=== PATIENT | male | born 1975 | race Two or more races ===

== ENCOUNTER 2016-11-29 17:02 | Observation (INO) | payer OTHER ==
[2016-11-30] MEDS ORDERED: ACETAMINOPHEN 325 MG TAB PO PRN (10:15)
[2016-11-30] MEDS ORDERED: diphenhydrAMINE 25 MG CAP PO ONE (10:15)
[2016-11-30] MEDS ORDERED: ASPIRIN EC 325 MG TAB PO ONE (10:15)
[2016-11-30] MEDS ORDERED: DIAZEPAM 5 MG TAB PO ONE (10:15)
[2016-11-30] MEDS ORDERED: NITROGLYCERIN 0.4 MG BTL SL PRN (10:15)
[2016-11-30] MEDS ORDERED: TEMAZEPAM 15 MG CAP PO PRN ×2 (10:15→13:09)
[2016-11-30 10:42] LABS: % IMMATURE GRANULYOCYTES 0.2 % (0.0-1.1); ABSOLUTE IMMATURE GRANULOCYTES 0.01 10^3/uL (0.00-0.10); ADD DIFF? NO; ADD MORPH? NO; ADD SCAN? NO; ATYPICAL LYMPHOCYTE FLAG 10 (0-99); FRAGMENT RBC FLAG 0 (0-99); HEMATOCRIT 42.1 % (40.0-51.0); LEFT SHIFT FLG 0 (0-99); LIPEMIA HEMOLYSIS FLAG 90 (0-99); MEAN CELL HEMOGLOBIN 32.9 pg (27.9-34.1); MEAN CELL HEMOGLOBIN CONCENTR. 35.6 g/dL (32.4-36.7); MEAN CELL VOLUME 92.3 fL (81.5-99.8); MEAN PLATELET VOLUME 10.4 fL (8.7-11.7); PLATELET CLUMPS FLAG 0 (0-99); PLATELET COUNT 171 10^3/uL (150-400); RED BLOOD CELL COUNT 4.56 10^6/uL (4.40-6.38); RED CELL DISTRIBUTION WIDTH 12.1 % (11.5-15.2)
[2016-11-30] MEDS ORDERED: LIDOCAINE 1% 30 ML SDV ONE (11:02)
[2016-11-30] MEDS ORDERED: fentaNYL 100 MCG/2 ML INJ ONE (11:02)
[2016-11-30] MEDS ORDERED: MIDAZOLAM 2 MG/2 ML VIAL ONE (11:02)
[2016-11-30] MEDS ORDERED: VERAPAMIL 5 MG/2 ML VIAL ONE ×2 (11:03→12:14)
[2016-11-30] MEDS ORDERED: IOPAMIDOL (ISOVUE-370) 150 ML BTL IV ONE ×2 (11:03→12:09)
[2016-11-30] MEDS ORDERED: HEPARIN 10,000 UNIT/10 ML MDV ONE ×2 (11:03→12:27)
[2016-11-30 11:18] LABS: INR 1.04 (0.83-1.16); PROTIME(PATIENT) 13.5 SEC (12.0-15.0)
[2016-11-30 11:19] LABS: APTT 28.1 SEC (23.0-38.0)
[2016-11-30 11:30] LABS: ANION GAP 11 mEq/L (8-16); CARBON DIOXIDE 23 mEq/l (22-31); CHLORIDE 108 mEq/L (97-110); CHOLESTEROL 212 mg/dL (140-200); CHOLESTEROL/HDL RATIO 6.42 RATIO (1.00-4.97); CREATININE 0.8 mg/dL (0.7-1.3); GLOMERULAR FILTRATION RATE > 60; GLUCOSE 92 mg/dL (70-100); HIGH DENSITY LIPOPROTEIN 33 mg/dL (40-65); LDL/HDL RATIO 3.73 RATIO (1.00-3.64); LOW DENSITY LIPOPROTEIN 123 mg/dL (70-100); MAGNESIUM 1.8 mg/dL (1.6-2.3); NON-HIGH DENSITY LIPOPROTEIN 179 mg/dL (90-129); POTASSIUM 4.4 mEq/L (3.5-5.2); SODIUM 142 mEq/L (134-144); TRIGLYCERIDE 282 mg/dL (40-150); VERY LOW DENSITY LIPOPROTEINS 56 mg/dL (8-25)
[2016-11-30] MEDS ORDERED: EPTIFIBATIDE 200 MG/100 ML BOTTLE IV ONE (12:03)
[2016-11-30] MEDS ORDERED: EPTIFIBATIDE 20 MG/10 ML VIAL IVP ONE (12:04)
[2016-11-30] MEDS ORDERED: NITROGLYCERIN 1,500 MCG/15 ML VIAL MISC ONE (12:17)
[2016-11-30] MEDS ORDERED: PRASUGREL HCL 10 MG TAB ONE (12:46)
[2016-11-30] MEDS ORDERED: PRASUGREL HCL 10 MG TAB PO ONE (13:09)
[2016-11-30] MEDS ORDERED: ATROPINE SULFATE 1 MG/10 ML SYR IVP PRN (13:09)
[2016-11-30] MEDS ORDERED: HYDROCODONE/APAP 5/325 TAB PO PRN (13:09)
[2016-11-30] MEDS ORDERED: LORazepam 2 MG/ML INJ IVP PRN (13:09)
[2016-11-30] MEDS ORDERED: OXYCODONE/APAP 5/325 TAB PO PRN (13:09)
--- NOTE | 2016-11-30 13:41 | CPEKG ---
Heart Rate: 49 RR Interval: 1224 P-R Interval: 192 QRSD Interval: 92 QT Interval: 448 QTC Interval: 405 P [place]: 61 QRS [place]: 94 T Wave [place]: 78 EKG Severity - ABNORMAL ECG - EKG Impression: SINUS BRADYCARDIA EKG Impression: PROBABLE ANTEROSEPTAL INFARCT, AGE INDETERM Electronically Signed By: Krupa Machado 01-Dec-2016 16:45:59
[2016-11-30 14:40] LABS: CREATINE KINASE-MB FRACTION 0.95 ng/mL (0-3.19); TROPONIN I < 0.012 ng/mL (0-0.034)
--- NOTE | 2016-11-30 14:45 | CPIP ---
[f rep st] INVASIVE CARDIAC PROCEDURE DATE OF PROCEDURE: 11/30/2016 INDICATION: A 41-year-old man with no previous cardiac history, with a number of weeks of progressiv e anginal chest pain leading to markedly positive exercise stress test yesterday with multiple high-r isk features. Patient's symptoms are [place] Cardiovascular class III and severe lifestyle limiting . PROCEDURE PERFORMED: 1. Left heart catheterization with left ventricular and selective coronary angiography via right rad ial approach. 2. Percutaneous intervention with balloon angioplasty, intravascular ultrasound imaging, intracorona ry stent placement in the totally occluded proximal and mid left anterior descending coronary artery. 3. Kissing balloon angioplasty of left anterior descending and principal diagonal branch via stent s truts. DESCRIPTION: Risks, benefits, and alternatives were discussed in detail. Informed consent was obtai nata. Edin test was normal. Patient was brought to the catheterization laboratory where time-out wa s performed. Right wrist was sterilely prepped and draped. 2% lidocaine utilized for local anesthet ic. A 6-Slovenian slender sheath placed in the right radial artery utilizing micropuncture technique. Intra-arterial verapamil and intravenous heparin were administered. All catheters were exchanged ove r an exchange length J wire. Diagnostic angiography performed with 6-Slovenian Raghu right 4 and Judk ins left 3.5 catheters. Pigtail catheter used for left heart catheterization and left ventricular an giogram. The obvious culprit lesion was the total occlusion of the LAD, which had some features of chronic tot al occlusion with pvcbq-ap-fcjg collaterals and some appearance of thrombus, consistent with sub-therapist's assistant val total occlusion. There was calcification. Plans were made for percutaneous intervention. Initi ally, an EBU 3.5 guide catheter was placed but was not a good fit and was exchanged for a left radial backup, 3.5 6-Slovenian guide catheter, which was a good fit. Further heparin was administered. After we crossed the lesion, double bolus Integrilin was started. A long Supervisor Dumping 50 wire was placed through a 2.0 x 12 mm Krxv-Bun-Tvqx Emerge balloon, and with some difficulty, the total occlusion was crosse d, and the wire was placed out distally, allowing passage of the balloon. Blood was aspirated from t he balloon, and injection of dilute contrast demonstrated intraluminal placement. A long [place] wire was then placed through the balloon, and the balloon was used for multiple pre-dilations up to 1 4 atmospheres in the proximal and mid vessel, restoring some antegrade flow. Intracoronary nitroglyc angelica and verapamil were administered. Intravascular ultrasound imaging was performed. Lesion length and vessel diameter were then measured. A 3.5 x 38 mm Synergy stent was then carefully positioned i n the proximal and mid left anterior descending and deployed to 16 atmospheres. Further nitroglyceri n and verapamil were administered. The original Supervisor Dumping 50 wire through the 2 mm x 12 mm Qceh-Jde-Hfgw balloon was then placed through the stent struts into the principal diagonal branch, which was in "s tent prison." This balloon was utilized to dilate the stent struts for a number of inflations up to 16 atmospheres. Through the balloon, the wire was exchanged for a long Intuition wire, and this balloo n was removed. Then a 2.5 x 12 mm Monorail Emerge balloon was placed in the diagonal branch, and a 4 .5 mm x 15 mm NC Emerge balloon was placed in the LAD. Multiple proximal LAD inflations were perform ed up to 16 atmospheres with the NC balloon, and kissing balloon inflations in the mid LAD and diagon al branch. The balloons were removed. Further nitroglycerin and verapamil were administered, follow ed by ultrasound imaging throughout the length of the LAD, showing excellent result. Angiography in orthogonal views also demonstrated excellent result after removal of the guidewires. TR Band was the n placed after removal of the sheath. Patient received Effient 60 mg in the chemical laboratory tester, and Integrilin drip continued. FINDINGS: Hemodynamics: LVEDP was 21 mmHg. There was no systemic hypertension. For details, see t he chemical laboratory tester flow sheet. Left ventricle: Left ventricle is normal in size and shape. There is very mild anterior wall hypoki nesis with overall normal ejection fraction of approximately 60%. There are no filling defects or si gnificant mitral regurgitation. The proximal aortic root and ascending aorta appear unremarkable. M ild coronary calcification is identified. Coronary angiography: 1. Right coronary: The right coronary is a large dominant vessel with a large posterior descending and a moderate posterolateral branch. The right coronary and its branches are free of disease. Ther e are fair volqb-he-gaat collaterals identified filling the LAD from the principal diagonal to the ap ex. 2. Left main: The left main is a moderately large bifurcating vessel with minimal plaquing seen on ultrasound imaging. 3. Left anterior descending: This is a large vessel, which is totally occluded proximally at the or igin of the 1st septal manufacturing supervisor 2nd shift and just proximal to the origin of the principal diagonal branch. There is mainly filling from kscjl-pw-meid and some kihn-xg-ikvi filling of a diagonal branch. There is the appearance of some staining, consistent with thrombus. Otherwise, there is minimal disease. 4. Circumflex: The circumflex is nondominant, giving rise to a large multi-branching 1st obtuse mar ginal branch and a small distal AV groove circulation. PERCUTANEOUS INTERVENTION: Following percutaneous intervention on the total occlusion, there is an e xcellent result with restored normal antegrade flow. The principal diagonal branch was placed in "st ent prison" with some encroachment which improved substantially following balloon angioplasty and kissi ng balloon angioplasty. Following large balloon angioplasty in the LAD, there is an excellent result confirmed by ultrasound imaging. There is CARLEE grade 3 antegrade flow in all vessels and no signifi cant residual stenosis, no side branch obstruction, and no stent underdeployment. OVERALL IMPRESSION: 1. Mild anterior wall hypokinesis with normal ejection fraction. 2. Single-vessel coronary disease with total occlusion of proximal left anterior descending with rig ht-to-left and eygb-ru-peqw collaterals, successfully treated as described above with single long geovanny g-eluting stent and kissing balloon angioplasty into the diagonal branch, with excellent result confi rmed by ultrasound imaging. PLAN: 1. Dual antiplatelet therapy. 2. Continue Integrilin for 18 hours. 3. High-dose statin therapy. 4. Low-dose beta jaziel due to LV dysfunction. 5. Follow ventricular function with echocardiography. 6. Assess lipoprotein(a) and other potential risk factors for early-onset coronary disease. /[id number]/MODL
[2016-11-30] MEDS: D5W 1/2 NS 1,000 ML IV SCH ×2 (15:05→22:21)
[2016-11-30] MEDS: ATORVASTATIN CALCIUM 40 MG TAB PO SCH (15:17)
[2016-11-30] MEDS: ONDANSETRON 4 MG/2 ML VIAL IVP PRN (16:25)
[2016-11-30] MEDS: EPTIFIBATIDE 100 ML IV SCH (17:21)
[2016-12-01] MEDS: EPTIFIBATIDE 100 ML IV SCH (01:15)
[2016-12-01 05:34] LABS: % IMMATURE GRANULYOCYTES 0.2 % (0.0-1.1); ABSOLUTE IMMATURE GRANULOCYTES 0.02 10^3/uL (0.00-0.10); ADD DIFF? NO; ADD MORPH? NO; ADD SCAN? NO; ATYPICAL LYMPHOCYTE FLAG 10 (0-99); FRAGMENT RBC FLAG 0 (0-99); HEMATOCRIT 37.2 % (40.0-51.0); HEMOGLOBIN 12.9 g/dL (13.7-17.5); LEFT SHIFT FLG 0 (0-99); LIPEMIA HEMOLYSIS FLAG 90 (0-99); MEAN CELL HEMOGLOBIN 32.6 pg (27.9-34.1); MEAN CELL HEMOGLOBIN CONCENTR. 34.7 g/dL (32.4-36.7); MEAN CELL VOLUME 93.9 fL (81.5-99.8); MEAN PLATELET VOLUME 11.1 fL (8.7-11.7); PLATELET CLUMPS FLAG 0 (0-99); PLATELET COUNT 152 10^3/uL (150-400); RED BLOOD CELL COUNT 3.96 10^6/uL (4.40-6.38); RED CELL DISTRIBUTION WIDTH 12.2 % (11.5-15.2)
[2016-12-01 05:56] LABS: ALBUMIN 3.4 g/dL (3.5-5.0); ANION GAP 9 mEq/L (8-16); ASPARTATE AMINOTRANSFERASE 28 IU/L (17-59); BILIRUBIN,TOTAL 0.5 mg/dL (0.1-1.4); CALCIUM 8.9 mg/dL (8.5-10.4); CARBON DIOXIDE 25 mEq/l (22-31); CHLORIDE 107 mEq/L (97-110); CREATININE 0.9 mg/dL (0.7-1.3); GLOMERULAR FILTRATION RATE > 60; GLUCOSE 107 mg/dL (70-100); LACTATE DEHYDROGENASE 447 IU/L (313-618); MAGNESIUM 1.8 mg/dL (1.6-2.3); POTASSIUM 4.4 mEq/L (3.5-5.2); SODIUM 141 mEq/L (134-144)
[2016-12-01 05:59] LABS: HIGHLY SENSITIVE CRP 2.1 mg/L
[2016-12-01 06:07] LABS: TROPONIN I 0.475 ng/mL (0-0.034)
[2016-12-01 06:14] LABS: CREATINE KINASE-MB FRACTION 5.27 ng/mL (0-3.19)
[2016-12-01 06:16] LABS: CK-MB INTERPRETATION POSITIVE (NEGATIVE)
[2016-12-01 07:13] VITALS: BP 111/72; PULSE 84; RESP 13; TEMP 98.4; O2SAT 96
[2016-12-01] MEDS: ONDANSETRON 4 MG/2 ML VIAL IVP PRN (08:43)
[2016-12-01] MEDS ORDERED: ASPIRIN EC 325 MG TAB PO SCH (09:00)
[2016-12-01] MEDS ORDERED: SERTRALINE HCL 50 MG TAB PO SCH (09:00)
[2016-12-01] MEDS ORDERED: PRASUGREL HCL 10 MG TAB PO SCH (09:00)
[2016-12-01] MEDS ORDERED: METOPROLOL SUCCINATE XR 25 MG TAB PO SCH (09:00)
[2016-12-01] MEDS: ATORVASTATIN CALCIUM 40 MG TAB PO SCH (09:47)
--- NOTE | 2016-12-01 14:07 | GDS ---
[f rep st] DISCHARGE SUMMARY DIAGNOSES: 1. Accelerating angina, [place] Cardiovascular Society class III. 2. Coronary artery disease. 3. Hyperlipidemia. PROCEDURES: 1. Left heart catheterization with left ventricular and selective coronary angiography via a right r adial approach. 2. Percutaneous angioplasty, intravascular ultrasound imaging, and stent placement in the proximal/m id-left anterior descending coronary artery. 3. Kissing balloon angioplasty of left anterior descending and principal diagonal branch via stent s truts. HOSPITAL COURSE: This is a 41-year-old man with no previously known coronary disease or known cardia c risk factors, who presented with approximately 3 months of progressive anginal-type chest pain. On the day prior to admission, he was seen by Dr. Randolph and had a markedly positive exercise stress t est at low level with multiple high risk features. He was therefore set up for urgent cardiac cathet erization the next morning. Catheterization revealed total occlusion of the proximal/mid-left anteri or descending with what was likely a subacute lesion with calcium and thrombus with faint right-to-le ft collaterals and only very mild anterior wall motion abnormality. Percutaneous intervention was pe rformed with an excellent result with angioplasty and placement of a long drug-eluting stent with PadSquads sing balloon angioplasty and high-pressure postdilation with excellent result by ultrasound imaging. The patient had a minimal rise in cardiac enzymes. He was feeling well without complication at the time of discharge. LABS: His laboratory studies showed a total cholesterol of 212, triglycerides 282, LDL of 123, with a very low HDL of 33. Plavix genetic testing was pending. A lipoprotein(a) was also pending. DISCHARGE MEDICATIONS: Aspirin 325 mg daily, Effient 10 mg daily, Atorvastatin 40 mg daily, metoprol ol extended-release 25 mg daily. FOLLOWUP PLANS: 1. The patient should be seen in the office within 1-2 weeks. 2. I would recommend continuing Effient long-term for at least 1 year if affordable, or he could be switched at some point after 90 days to Plavix, depending on the results of the genetic testing. 3. Followup of his Lp(a) and lipid panel will be required with an LDL goal of less than 70. 4. Echocardiogram should be performed in the not too distant future for further assessment of wall m otion. 5. Followup ischemic burden intermittently with nuclear imaging stress testing. /[id number]/MODL
[2016-12-02 15:12] LABS: 2C19S INTERPRETATION See Comments (())
== END 2016-12-01 11:15 | disposition home or self-care (01) ==
LOC: F2W 11-30 08:58
PROVIDERS: ADMIT Internal Medicine Interventional Cardiology; ATTEND Internal Medicine Interventional Cardiology
PROC: 02713ZZ Dilation of Coronary Artery, Two Arteries, Percutaneous Approach (ICD-10-PCS; 2016-11-30)
PROC: 4A023N7 Measurement of Cardiac Sampling and Pressure, Left Heart, Percutaneous Approach (ICD-10-PCS; 2016-11-30)
PROC: B245ZZ3 Ultrasonography of Left Heart, Intravascular (ICD-10-PCS; 2016-11-30)
PROC: B2151ZZ Fluoroscopy of Left Heart using Low Osmolar Contrast (ICD-10-PCS; 2016-11-30)
PROC: B2111ZZ Fluoroscopy of Multiple Coronary Arteries using Low Osmolar Contrast (ICD-10-PCS; 2016-11-30)
PROC: 027034Z Dilation of Coronary Artery, One Artery with Drug-eluting Intraluminal Device, Percutaneous Approach (ICD-10-PCS; principal; 2016-11-30 13:32)
DX: I25.119 Atherosclerotic heart disease of native coronary artery with unspecified angina pectoris (principal); E78.5 Hyperlipidemia, unspecified; R94.39 Abnormal result of other cardiovascular function study
CPT/HCPCS: 92921; 92943; 92978; 93005; 93458; C1725; C1769; C1887; G0378; 81225-90; 83695-90; 86141-90; C1874; C9607; J1200; J1327; J1644; J2250; J2405; J3010; Q9967

== ENCOUNTER 2017-03-21 19:55 | Observation (INO) | payer OTHER ==
[2017-03-21 20:01] VITALS: TEMP 98.8
--- NOTE | 2017-03-21 20:12 | CPEKG ---
Heart Rate: 63 RR Interval: 952 P-R Interval: 176 QRSD Interval: 98 QT Interval: 388 QTC Interval: 398 P [place]: 64 QRS [place]: 79 T Wave [place]: 54 EKG Severity - NORMAL ECG - EKG Impression: SINUS RHYTHM Electronically Signed By: Kolton Cloud 21-Mar-2017 20:24:18
[2017-03-21] MEDS ORDERED: ASPIRIN 81 MG CHEWABLE TAB PO ONE (20:19)
--- NOTE | 2017-03-21 20:21 | EDPHY ---
H & P Time Seen by Provider: 03/21/17 20:17 HPI/ROS: Chief complaint. Chest pain HPI. 41-year-old male with history of complete LAD occlusion in November with a stent. Since that time he has had pressure in his chest as well as anxiety. He feels that the pressure is somewhat worse over the past 2-3 weeks. There is no radiation. No shortness of breath. Discomfort increases with stress. He feels well in the morning and then when he goes to work he starts to developed some anterior pressure. However it is not worse with exertion as it was previously in November. It is not worse with breathing. He had recent travel to [place]. Does not have any leg symptoms. No fever or cough. He has had similar symptoms since the heart catheterization and stent. Again he has had increased anxiety since November. ROS Constitutional. no fever/chills, no weakness Eyes. no problems with vision ENT. no sore throat, no nasal drainage Cardiovascular. Chest pressure Respiratory. no shortness of breath, no cough Abdominal. no abdominal pain, no nausea/vomiting, no diarrhea . no problems urinating MS. no calf pain/swelling, no neck/back pain, no joint pain Skin. no rash Lymph. no swollen glands Neuro. no headache, no dizziness, no difficulty walking or with speech Past Medical/Surgical History: Coronary artery disease with stent. Social History: , nonsmoker, no alcohol Smoking Status: Never smoked Physical Exam: General Appearance: Alert well-developed male mild distress vital signs are stable Eyes: Pupils equal and round no pallor or injection. ENT, Mouth: Mucous membranes are moist. Respiratory: There are no retractions, lungs are clear to auscultation. Cardiovascular: Regular rate and rhythm. Gastrointestinal: Abdomen is soft and nontender, no masses, bowel sounds normal. Neurological: Awake and alert, sensory and motor exams grossly normal. Skin: Warm and dry, no rashes. Musculoskeletal: Neck is supple nontender. Extremities symmetrical, full range of motion. Psychiatric: Patient is oriented X 3, there is no agitation. Constitutional: Initial Vital Signs Temperature (C) 37.1 C 03/21/17 19:58 Heart Rate 69 03/21/17 19:58 Respiratory Rate 18 03/21/17 19:58 Blood Pressure 132/74 H 03/21/17 19:58 O2 Sat (%) 98 03/21/17 19:58 O2 Delivery Mode Room Air Allergies/Adverse Reactions: No Known Allergies Allergy (Verified 03/21/17 20:01) Home Medications: Medication Instructions Recorded Aspirin EC [Aspirin EC 325 mg (*)] 325 mg PO DAILY #0 tab 12/01/16 Metoprolol Succinate Xr [Toprol Xl 25 mg PO DAILY #30 tab 12/01/16 25 mg (*)] Prasugrel HCl [Effient 10mg (*)] 10 mg PO DAILY #30 tab 12/01/16 Acetaminophen [Tylenol 325mg (*)] 325 mg PO DAILY PRN 03/22/17 Rosuvastatin Calcium [Rosuvastatin 20 mg PO DAILY 03/22/17 Calcium] Medical Decision Making - Diagnostics EKG Interpretation: EKG interpreted by me shows normal sinus rhythm with normal interval and axis. QRS is normal there is no significant ST elevation or depression. No arrhythmia. The rate is 63 Procedures: IV normal saline, monitor. Aspirin in the emergency department ED Course/Re-evaluation: Re-evaluation 9:45 p.m..--patient is stable. He and I discussed imaging lab an EKG findings. We will repeat the patient's troponin though he is without symptoms Re-evaluation 10:30 p.m. patient is stable. 2nd troponin is normal. The patient and I discussed treatment plan and recommendation for admission. He expresses understanding and agreement I consulted and discussed case with Dr. delaney, hospitalist, who agrees to the admission Differential Diagnosis: Patient is a 41-year-old male with known coronary artery disease and a complete LAD lesion requiring stenting in November 2016. He has continued to have chest pressure similar to his previous presentation. However it is no longer associated with exertion or shortness of breath. This could certainly be anxiety. However my consideration and concern is for acute coronary syndrome and reocclusion of the stent - Data Points Laboratory Results: Laboratory Results 03/21/17 20:19 03/21/17 20:19 Medications Given: Discontinued Medications Aspirin (Aspirin) 324 mg PO EDNOW ONE Stop: 03/21/17 20:20 Last Admin: 03/21/17 20:24 Dose: 324 mg Sodium Chloride (Ns) 1,000 mls @ 0 mls/hr IV EDNOW ONE PRN Reason: Wide Open Stop: 03/22/17 07:57 Last Admin: 05/27/17 07:57 Dose: 1,000 mls Departure - Departure Disposition: [facility] Inpatient Acute Clinical Impression: Chest pain Qualifiers: Chest pain type: unspecified Qualified Code(s): R07.9 - Chest pain, unspecified Condition: Good
[2017-03-21 20:27] LABS: % IMMATURE GRANULYOCYTES 0.3 % (0.0-1.1); ABSOLUTE IMMATURE GRANULOCYTES 0.02 10^3/uL (0.00-0.10); ADD DIFF? NO; ADD MORPH? NO; ADD SCAN? NO; ATYPICAL LYMPHOCYTE FLAG 10 (0-99); FRAGMENT RBC FLAG 0 (0-99); HEMOGLOBIN 13.5 g/dL (13.7-17.5); LEFT SHIFT FLG 0 (0-99); LIPEMIA HEMOLYSIS FLAG 90 (0-99); MEAN CELL HEMOGLOBIN 33.3 pg (27.9-34.1); MEAN CELL HEMOGLOBIN CONCENTR. 35.5 g/dL (32.4-36.7); MEAN CELL VOLUME 93.6 fL (81.5-99.8); MEAN PLATELET VOLUME 10.8 fL (8.7-11.7); PLATELET CLUMPS FLAG 0 (0-99); PLATELET COUNT 159 10^3/uL (150-400); RED BLOOD CELL COUNT 4.06 10^6/uL (4.40-6.38); RED CELL DISTRIBUTION WIDTH 12.5 % (11.5-15.2)
[2017-03-21 20:36] LABS: ANION GAP 11 mEq/L (8-16); CALCIUM 9.4 mg/dL (8.5-10.4); CARBON DIOXIDE 24 mEq/l (22-31); CHLORIDE 105 mEq/L (97-110); CREATININE 0.8 mg/dL (0.7-1.3); GLOMERULAR FILTRATION RATE > 60; GLUCOSE 89 mg/dL (70-100); POTASSIUM 3.7 mEq/L (3.5-5.2); SODIUM 140 mEq/L (134-144)
[2017-03-21 20:48] LABS: TROPONIN I < 0.012 ng/mL (0-0.034)
[2017-03-21] MEDS ORDERED: ONDANSETRON DISINTEGRATING 4 MG TAB PO PRN (23:12)
[2017-03-21] MEDS ORDERED: TEMAZEPAM 15 MG CAP PO PRN (23:12)
[2017-03-21] MEDS ORDERED: ONDANSETRON 4 MG/2 ML VIAL IVP PRN (23:12)
[2017-03-21] MEDS ORDERED: ACETAMINOPHEN 325 MG TAB PO PRN (23:12)
--- NOTE | 2017-03-21 23:48 | GHP ---
[f rep st] HISTORY AND PHYSICAL DATE OF ADMISSION: 03/21/2017 CHIEF COMPLAINT: Chest pain. HISTORY OF PRESENT ILLNESS: This is a 41-year-old man, who recently had a PCI to his LAD with total ly occluded proximal and mid LAD, who presents with chest pain. It has gone on now for about 3 week s, described as left-sided pressure, not exertional. It is similar to his previous episode of chest pain, though less severe than what led him to get a stent. Not associated with any shortness of br eath, nausea, vomiting. He did travel to [place] recently. He denies any recent leg swelling. His functional status has been the same overall. PAST MEDICAL/SURGICAL HISTORY: 1. Coronary artery disease, status post recent PCI to his LAD for totally occluded LAD. 2. Right ankle surgeries. MEDICATIONS: Please see medication reconciliation. ALLERGIES: None. SOCIAL HISTORY: Does not drink or smoke. FAMILY HISTORY: No early coronary artery disease. REVIEW OF SYSTEMS: A 10-point Review of Systems is conducted and is negative except per HPI. PHYSICAL EXAM: VITAL SIGNS: Blood pressure 124/80, heart rate 70, respiration rate 16, satting 96% on room air, temperature is 37.1. GENERAL: The patient is a pleasant man, who appears comfortable , in no acute distress. HEENT: Normocephalic, atraumatic. CARDIOVASCULAR: Regular rate and rhyth m. No murmurs, rubs, or gallops. PULMONARY: Lungs clear to auscultation bilaterally. ABDOMEN: S oft, nontender, nondistended. SKIN: No rash. : No [place]. NEUROLOGIC: Alert and oriented x3. He is moving all extremities. PSYCHIATRIC: Normal mood and affect. LABS: Hemoglobin 13.5. D-dimer 0.41. Basic metabolic panel is normal. Troponin x2 are negative. DATA: 1. EKG shows sinus rhythm, it is a normal EKG. 2. Chest x-ray shows normal heart size, clear lung murdock. IMPRESSION AND PLAN: A 41-year-old man with known coronary artery disease, presents with chest pain . Chest pain in the setting of known coronary artery disease: We will ask Cardiology to evaluate in t he morning. I will ask my covering colleague to place this consult. We will continue to trend his troponins. Fortunately, his initial troponin and EKG are normal. His D-dimer is negative. Will pr ovide him with aspirin. Suspect most likely he will get a noninvasive ischemic eval, though I will defer to Cardiology. We will monitor on telemetry overnight. This is a high-risk diagnosis. /[id number]/MODL
[2017-03-22] MEDS ORDERED: NS 1,000 ML IV ONE (07:56)
[2017-03-22] MEDS ORDERED: PRASUGREL HCL 10 MG TAB PO SCH (09:00)
[2017-03-22] MEDS ORDERED: METOPROLOL SUCCINATE XR 25 MG TAB PO SCH (09:00)
[2017-03-22] MEDS ORDERED: ASPIRIN EC 325 MG TAB PO SCH (09:00)
[2017-03-22] MEDS ORDERED: ASPIRIN EC 325 MG TAB PO ONE (12:15)
[2017-03-22] MEDS ORDERED: ACETAMINOPHEN 325 MG TAB PO PRN (12:18)
[2017-03-22] MEDS ORDERED: ROSUVASTATIN CALCIUM 20 MG TAB PO SCH (12:30)
--- NOTE | 2017-03-22 12:54 | GCON ---
[f rep st] CONSULTATION CARDIOLOGY CONSULTATION DATE OF CONSULTATION: 03/22/2017 REASON FOR CONSULTATION: Chest pain. HISTORY OF PRESENT ILLNESS: The patient is a pleasant 41-year-old gentleman known to [facility] Cardiology Department with a history of coronary artery disease with a chronic total occlusion of the proximal LAD with alzbp-la-ayzk and knan-aw-yrwj collaterals who underwent successful percutaneous coronary intervention to the LAD with a single 3.5 x 38 mm Synergy drug-eluting stent in November [address] Alvarez. He tolerated the procedure well. He had just been seen in our office for followup on March 12, 2017, at which time he was doing well. The patient states that this past Friday he developed some substernal chest discomfort which he described as a chest pressure. No other associated symptoms. These symptoms were not associated with physical exertion. There was no associated shortness of breath, nausea, vomiting, or diaphoresis. These symptoms were nonradiating and occurred intermittently. He states that the symptoms persisted intermittently throughout the course of the week; however, this did not interrupt his work schedule. 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 He states his job is physically active. He was able to work between 10-11 hours each day this week without changes in his ability to do his job. He denied any complaints of exertional chest pain, shortness of breath, exertion intolerance, or fatigue. He denied palpitations, dizziness, lightheadedness, near syncope, or syncope. He noted that his symptoms of chest discomfort were exacerbated by becoming angry. He describes conversations on the telephone during the course of the week while at work which resulted him getting upset and anxious which resulted in chest discomfort. He states that when his anxiety level decreased his symptoms resolved. He presented to [facility] last evening secondary to the fact that these symptoms had persisted and had become more bothersome. Currently, at the time of my exam he is chest pain-free. He has no cardiac complaints. Lab work demonstrates negative troponin x3. D-dimer is within normal limits at 0.41. Basic metabolic panel is unremarkable. CBC is normal. Chest x-ray demonstrates no acute cardiopulmonary process. EKG demonstrates normal sinus rhythm with normal intervals and normal axis. Current vital signs demonstrate blood pressure 137/86, heart rate 75, respiratory rate of 18, oxygen saturation 96% on room air. REVIEW OF SYSTEMS: As outlined above. PAST MEDICAL HISTORY: 1. Hyperlipidemia. 2. Coronary artery disease with PCI to the LAD in November 2016. MEDICATIONS ON ADMISSION: 1. Aspirin 325 mg daily. 2. Effient 10 mg daily. 3. Metoprolol succinate 25 mg once daily. 4. Rosuvastatin 20 mg daily. He has been compliant with all of his medications. ALLERGIES: None. FAMILY HISTORY: No family history of premature coronary artery disease. SOCIAL HISTORY: He is . He is a lifelong nonsmoker. PHYSICAL EXAMINATION: VITAL SIGNS: Blood pressure 137/86, heart rate 75 in sinus rhythm, respiratory rate of 18, oxygen saturation 98% on room air. GENERAL : He is awake, alert, oriented, appropriate, in no apparent distress. NECK: There is no evidence of JVP or carotid bruits. LUNGS: Clear to auscultation bilaterally. CARDIAC: S1, S2. Regular rate and rhythm. No murmurs, rubs, or gallops. ABDOMEN: Soft, nontender, nondistended. There is no pulsatile mass or abdominal bruit. EXTREMITIES: There is no evidence of cyanosis, clubbing or edema. LABORATORY DATA: Lab work demonstrates white blood cell count of 7.68, hemoglobin 13.5, and hematocrit 38.0, platelet count 159. D-dimer 0.41. Sodium 140, potassium 3.7, chloride 105, bicarb 24, BUN 15, creatinine 0.8, glucose 89, calcium 9.4. Troponin less than 0.012 x3. TEST DATA: EKG demonstrates normal sinus rhythm with normal intervals, normal axis, no evidence of ischemia or infarction. Chest x-ray demonstrates no acute cardiopulmonary process. 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 Alvarez. No evidence of significant coronary artery disease within the right coronary artery, left main or circumflex vessel. He has had atypical chest symptoms over the course of the past week. These symptoms correlate with becoming angry or anxious. He does have a history of underlying anxiety. He has cardiac workup, including EKG chest x-ray, lab work, telemetry, vital signs and physical exam are unremarkable. I do not think these current symptoms represent coronary artery disease. PLAN: 1. Recommend discharge to home. 2. Recommend patient continue current medications as outlined above. 3. Patient will present to our office on Friday at 3 p.m. on January 23, 2017, for an exercise treadmill stress test. I have given him my contact information and office number if he has further symptoms over the course of the weekend. He understands these instructions. 30 minutes spent on consultation and coordination of care /[id number]/MODL MTDD
[2017-03-22 13:40] VITALS: BP 130/82; PULSE 69; RESP 16; O2SAT 98
--- NOTE | 2017-03-23 06:15 | GDS ---
[f rep st] DISCHARGE SUMMARY DISCHARGE DIAGNOSES: 1. Chest pain, likely noncardiac. 2. Coronary artery disease, status post recent stent to his LAD. CONSULTANTS: Willie Hinton MD, cardiology. HISTORY: For details, please see the history and physical dated March 21, 2017. In brief, the patien matilda is a 41-year-old male with history of coronary artery disease, who recently had a stent placed in his LAD, who presents to the emergency department with chest pain. This has been present for the [facility] several weeks and is nonexertional. Given his recent stenting, he is admitted to the hospital fo r further evaluation. HOSPITAL COURSE: The patient admitted to the observation unit. He had 3- troponins. His EKG is no nischemic. Cardiology consulted and felt he was stable for discharge with plans for an outpatient s tress test, and will follow up with Dr. Hinton next week. It is possible he is having acid reflux sym ptoms, and I will discharge him on PPI therapy. DISPOSITION: Patient is discharged home in stable condition. DISCHARGE MEDICATIONS: Please see [employer] for complete updated outpatient medication list. New me dications on discharge include omeprazole 20 mg p.o. daily #30, no refills. He will continue all ot her outpatient medications as prescribed including aspirin 325 mg daily, Effient 10 mg daily, metopr olol 25 mg daily and rosuvastatin 20 mg daily. FAMILY HISTORY: Follow up with Dr. Willie Hinton next week. /[id number]/MODL
== END 2017-03-22 13:39 | disposition home health service (06) ==
PROVIDERS: ADMIT Student in an Organized Health Care Education/Training Program; ATTEND Hospitalist
DX: R07.89 Other chest pain (principal); I25.10 Atherosclerotic heart disease of native coronary artery without angina pectoris; Z95.5 Presence of coronary angioplasty implant and graft; E78.5 Hyperlipidemia, unspecified; F41.9 Anxiety disorder, unspecified
CPT/HCPCS: 71020; 93005; G0378